=== PATIENT | female | born 1970 | race Caucasian/White ===

== ENCOUNTER → 2017-10-10 | Outpatient (CLI) | payer BC | LOC: MC.RAD 10:39 | DX: Z12.31 Encounter for screening mammogram for malignant neoplasm of breast (principal) ==

== ENCOUNTER 2018-05-06 09:17 | Emergency (ER) | payer BC ==
[~2018-05-06] VITALS: Ht 168 cm; Wt 63.0 kg
[2018-05-06 09:26] VITALS: BP 144/71
[2018-05-06 10:20] VITALS: PULSE 59; TEMP 97.7
== END 2018-05-06 10:22 | disposition home or self-care (01) ==
LOC: COL.ER 09:17
DX: S51.812A Laceration without foreign body of left forearm, initial encounter (principal); Z23 Encounter for immunization; Z88.0 Allergy status to penicillin; W22.8XXA Striking against or struck by other objects, initial encounter; Y92.830 Public park as the place of occurrence of the external cause

== ENCOUNTER 2018-05-14 11:18 | Emergency (ER) | payer BC ==
[2018-05-14 11:27] VITALS: BP 130/78; PULSE 63; TEMP 98
== END 2018-05-14 11:35 | disposition home or self-care (01) ==
LOC: COL.ER 11:18
DX: S51.812D Laceration without foreign body of left forearm, subsequent encounter (principal); X58.XXXD Exposure to other specified factors, subsequent encounter

== ENCOUNTER → 2021-11-16 | Outpatient (CLI) | payer BC | LOC: MC.RAD 13:23 | DX: R92.8 Other abnormal and inconclusive findings on diagnostic imaging of breast (principal); N64.89 Other specified disorders of breast ==